=== PATIENT | male | born 1995 | race African-American/Black ===

== ENCOUNTER 2021-07-12 13:00 | Emergency (ER) | payer OTHER ==
[~2021-07-12] VITALS: Ht 172.7 cm; Wt 80.0 kg
[2021-07-12 13:08] VITALS: TEMP 98.9
[2021-07-12 13:50] LABS: HEMATOCRIT 41.4 % (42.0-52.0); MEAN CELL VOLUME 93 fl (80.0-100.0); MEAN CORPUSCULAR HEMOGLOBIN 31 pg (27-31); MEAN CORPUSCULAR HGB CONC 34 g/dl (33.0-37.0); MEAN PLATELET VOLUME 11.3 fl (7.4-10.4); PLATELET COUNT 184 K/mm3 (130-400); RED BLOOD COUNT 4.47 M/mm3 (4.20-5.60); REDCELL DISTRIBUTION WIDTH-CV 11.6 % (11.5-14.5)
[2021-07-12 14:06] LABS: ALBUMIN 4.1 gm/dL (3.5-5.0); CALCIUM 9.3 mg/dL (8.4-10.2); CREATININE, serum 1.31 mg/dL (0.72-1.25); PHOSPHOROUS 1.9 mg/dL (2.3-4.7); POTASSIUM 4.2 mmol/L (3.5-4.5)
[2021-07-12 15:23] VITALS: BP 146/83; PULSE 71
[2021-07-12] MEDS ORDERED: ATARAX 25MG25 MG/TAB PO (16:04)
== END 2021-07-12 15:26 | disposition home or self-care (01) ==
LOC: COL.ER 13:00
PROVIDERS: Emergency Medicine
DX: F41.9 Anxiety disorder, unspecified (principal); R94.4 Abnormal results of kidney function studies